=== PATIENT | male | born 2000 | race Hispanic/Latino ===

== ENCOUNTER 2024-03-23 14:35 | Emergency (ER) | payer SELFPAY ==
[~2024-03-23] VITALS: Ht 175.3 cm; Wt 136.1 kg
[2024-03-23 14:37] VITALS: BP 125/85
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
[2024-03-23] MEDS: acetaMINOPHEN 500 MG TABLET PO ONE (14:50)
[2024-03-23 14:58] VITALS: PULSE 99; RESP 18; TEMP 98.6; O2SAT 97
--- NOTE | 2024-03-23 15:06 | NUR ---
PT REFUSED LAST VITALS, PER GINNY GAMBOA. PT DISCHARGED BACK TO [place] [employer]ER. PT STABLE NO DISTRESS, VITALS IN TRIAGE WNL. PT MEDICATED PRIOR TO DISHCHARGE NO C/O NOW. PT TRANSFERRED VIA UNIT W/ OFFICER. CLEARNCE FORMS GIVEN TO TRANSPORT OFFICER.
== END 2024-03-23 15:06 ==
LOC: EEVIPCON 14:35 → EDH 14:35
DX: S00.10XA Contusion of unspecified eyelid and periocular area, initial encounter (principal); R51.9 Headache, unspecified; X58.XXXA Exposure to other specified factors, initial encounter; Y93.89 Activity, other specified; Y92.89 Other specified places as the place of occurrence of the external cause; Y99.8 Other external cause status
CPT/HCPCS: 99283